=== PATIENT | female | born 1985 | race Asian ===

== ENCOUNTER 2017-06-27 15:47 | Emergency (ER) | payer BC, OTHER ==
[2017-06-27 17:44] VITALS: BP 157/90
--- NOTE | 2017-06-27 21:35 | ED ---
Deena Miller Gabriel, scribed for Rene Moreira MD on 06/27/17 at 1655 . Syncope/Near Syncope - HPI Summary HPI Summary: This patient is a 31 year old F presenting to [facility] accompanied by her father with a chief complaint of a syncopal episode on 06/26/18. Symptoms alleviated by spontaneous resolution. Patient reports diaphoresis, light headedness, nausea , dizziness, blurry vision, LOC, and ringing in her ears. Patient denies CP, SOB , and palpitations. She was in the car for 2 hours yesterday and 10 minutes after she got out of the car she had the episode. She did not hit her head because her father caught her. LNMP was the end of last month and she denies any chance of . She hasnt been dehydrated and has been eating well. - History Of Current Complaint Chief Complaint: EDSyncope Time Seen by Provider: 06/27/17 16:40 Hx Obtained From: Patient Onset/Duration: Sudden Onset, Resolved Timing: Seconds Context: Witnessed, Loss Of Consciousness Activity At Onset: Other Associated Head Trauma: No Alleviating Factor(s): Spontaneous Resolution Associated Signs And Symptoms: Negative - CP, SOB, palpitations, Other - reports diaphoresis, light headedness, nausea, dizziness, blurry vision, LOC, and ears ringing PMH/Surg Hx/FS Hx/Imm Hx Endocrine/Hematology History: Denies: Hx Diabetes Cardiovascular History: Denies: Hx Deep Vein Thrombosis, Hx Hypercholesterolemia, Hx Hypertension Respiratory History: Denies: Hx Chronic Obstructive Pulmonary Disease (COPD) History: Denies: Hx Acute Renal Failure Musculoskeletal History: Denies: Hx Arthritis Opthamlomology History: Denies: Hx Cataracts EENT History: Denies: Hx Deafness Neurological History: Denies: Hx CVA, Hx Dementia Infectious Disease History: No Infectious Disease History: Denies: Traveled Outside the [place] in Last 30 Days - Family History Known Family History: Positive: Cardiac Disease - grandmother - Social History Occupation: Employed Full-time Alcohol Use: Rare Hx Substance Use: No Substance Use Type: Reports: None Hx Tobacco Use: No Smoking Status (MU): Never Smoked Tobacco Review of Systems Positive: Skin Diaphoresis Positive: Blurred Vision Positive: Other - ringing in her ears Negative: Palpitations, Chest Pain Negative: Shortness Of Breath Positive: Nausea Neurological: Other - light headedness, dizziness, LOC All Other Systems Reviewed And Are Negative: Yes Physical Exam - Summary Physical Exam Summary: Appearance: Well appearing, no pain distress Skin: warm, dry, reflects adequate perfusion Head/face: normal Eyes: EOMI, DONNA ENT: normal Neck: supple, non-tender Respiratory: CTA, breath sounds present Cardiovascular: RRR, pulses symmetrical Abdomen: non-tender, soft Bowel: present Musculoskeletal: normal, strength/ROM intact Neuro: normal, sensory motor intact, A&Ox3 Triage Information Reviewed: Yes Vital Signs On Initial Exam: Initial Vitals Temp Pulse Resp BP Pulse Ox 98.9 F 87 16 167/99 100 06/27/17 15:59 06/27/17 15:59 06/27/17 15:59 06/27/17 15:59 06/27/17 15:59 Vital Signs Reviewed: Yes Diagnostics - Vital Signs Vital Signs Temp Pulse Resp BP Pulse Ox 06/27/17 15:59 98.9 F 87 16 167/99 100 - Laboratory Lab Results: Lab Results 06/27/17 Range/Units 17:01 POC Glucose (mg/dL) 110 H (70-100) mg/dL Lab Statement: Any lab studies that have been ordered have been reviewed, and results considered in the medical decision making process. - EKG 17:01 Cardiac Rate: NL EKG Rhythm: Sinus Rhythm - at [address] Segment: Normal EKG Interpretation: normal axis, normal interval Course/Dx Course Of Treatment: vasovagal sx in a hospital. Had quick eval there. Been normal since. No hx of same. Not preg and no hx of anemia or heavy menses. ECG nl with nl QTc. - Diagnoses Provider Diagnoses: Vasovagal syncope Discharge - Discharge Plan Condition: Good Disposition: HOME Patient Education Materials: Syncope (ED) Referrals: [facility] [Outside] No Primary Care Phys,NOPCP [Primary Care Provider] - Additional Instructions: Drink plenty of fluids. Eat regularly. Return with dizziness, passing out, worse or other concerns. The documentation as recorded by the Deena kumar Gabriel accurately reflects the service I personally performed and the decisions made by me, Rene Moreira MD.
== END 2017-06-27 17:45 | disposition home or self-care (01) ==
LOC: ED 15:47
DX: R55 Syncope and collapse (principal)
CPT/HCPCS: 93005; 99282